=== PATIENT | female | born 1955 | race Two or more races ===

== ENCOUNTER 2021-02-20 08:00 | Inpatient (IN) | payer OTHER ==
[~2021-02-20] VITALS: Ht 157.5 cm; Wt 63.5 kg
[2021-02-20] MEDS ORDERED: SYNTHROID150 MCG PO (10:03)
[2021-02-20] MEDS ORDERED: TRICOR145 MG PO (10:03)
[2021-02-20] MEDS ORDERED: ACTONEL35 MG PO (10:04)
[2021-02-20] MEDS ORDERED: NORVASC5 MG PO (10:04)
[2021-02-28] MEDS ORDERED: MAXIMUM D3325 MCG (09:13)
[2021-02-28] MEDS ORDERED: NABUMETONE750 MG (09:13)
[2021-03-01] MEDS ORDERED: PERCOCET 5-3251 EACH PO (09:48)
[2021-03-01] MEDS ORDERED: ELIQUIS2.5 MG PO (09:48)
[2021-03-01] MEDS ORDERED: DUI500 PO (09:48)
== END 2021-03-01 13:09 | disposition home or self-care (01) | DRG 470 ==
LOC: O/R 02-27 07:55 → SURG 02-27 07:55 → SURH 02-27 08:00 → SURG 02-27 14:59
PROVIDERS: ADMIT Orthopaedic Surgery; ATTEND Orthopaedic Surgery
PROC: 0MNN0ZZ Release Right Knee Bursa and Ligament, Open Approach (ICD-10-PCS; 2021-02-27)
PROC: 3E0F7SF Introduction of Other Gas into Respiratory Tract, Via Natural or Artificial Opening (ICD-10-PCS; 2021-02-27)
PROC: 0SRC0J9 Replacement of Right Knee Joint with Synthetic Substitute, Cemented, Open Approach (ICD-10-PCS; principal; 2021-02-27 10:00)
DX: M17.11 Unilateral primary osteoarthritis, right knee (principal); D62 Acute posthemorrhagic anemia; I10 Essential (primary) hypertension; E07.9 Disorder of thyroid, unspecified; Z20.822 Contact with and (suspected) exposure to COVID-19